=== PATIENT | male | born 1960 | race Caucasian/White ===

== ENCOUNTER 2016-07-15 23:59 | Inpatient (IN) | payer BC, OTHER ==
[~2016-07-15] VITALS: Ht 170.2 cm; Wt 106.6 kg
[2016-07-16] VITALS (8 sets, daily range): BP systolic 130–180; BP diastolic 71–98; O2SAT 95
[2016-07-16] MEDS ORDERED: ONDANSETRON 4MG/2ML VIAL (J2405) IV ONE (00:15)
[2016-07-16] MEDS ORDERED: NS 1,000 ML IV ONE ×2 (00:15→03:00)
[2016-07-16] MEDS ORDERED: MORPHINE 4 MG/ML 1ML SYRINGE IV PRN (00:15)
[2016-07-16 00:19] LABS: BASO # 0.1 K/mm3 (0.0-0.2); BASO % 0.3 % (0.0-1.0); EOS # 0.2 K/mm3 (0.0-0.50); LARGE UNSTAINED CELL # 0.3 K/mm3 (0.0-0.4); LARGE UNSTAINED CELL % 1.3 % (0.0-4.0); LYMPH # 2.6 K/mm3 (1.5-4.5); LYMPH % 12.4 % (24.0-44.0); MEAN CORPUSCULAR HEMOGLOBIN 30.7 pg (27.0-33.0); MEAN CORPUSCULAR HGB CONC 32.4 g/dl (32.0-36.5); MEAN CORPUSCULAR VOLUME 94.6 fl (80.0-96.0); MONO # 0.8 K/mm3 (0.0-0.8); MONO % 4.4 % (0.0-5.0); NEUTROPHILS # 15.4 K/mm3 (1.8-7.7); NEUTROPHILS % 80.6 % (36.0-66.0); PLATELET COUNT, AUTOMATED 350 k/mm3 (150-450); RED CELL DISTRIBUTION WIDTH 13.2 % (11.5-14.5); WHITE BLOOD COUNT 19.1 K/mm3 (4.0-10.0)
[2016-07-16] MEDS ORDERED: MULT1TAB18 PO (00:21)
[2016-07-16] MEDS ORDERED: ASPI81TA85 PO (00:21)
[2016-07-16] MEDS ORDERED: PEPC1TAB4 PO (00:21)
[2016-07-16] MEDS ORDERED: HYDROmorphone HCL 1 MG/ML SYRINGE (J1170) As Ordered ONE (00:23)
[2016-07-16] MEDS ORDERED: HYDROmorphone HCL 1 MG/ML SYRINGE (J1170) IV PRN ×4 (00:30→06:30)
[2016-07-16 00:45] LABS: ALBUMIN/GLOBULIN RATIO 1.21 (1.00-1.93); ALKALINE PHOSPHATASE 129 U/L (45-117); ALT/SGPT 82 U/L (12-78); ANION GAP 6 MEQ/L (8-16); AST/SGOT 121 U/L (15-37); BILIRUBIN,DIRECT 0.4 MG/DL (0.0-0.2); BILIRUBIN,TOTAL 0.7 MG/DL (0.2-1.0); BLOOD UREA NITROGEN 20 MG/DL (7-18); CALCIUM LEVEL 9.1 MG/DL (8.5-10.1); CARBON DIOXIDE LEVEL 34 MEQ/L (21-32); CHLORIDE LEVEL 100 MEQ/L (98-107); CREATININE FOR GFR 1.19 MG/DL (0.70-1.30); GLOMERULAR FILTRATION RATE > 60.0 (>56); GLUCOSE, FASTING 262 MG/DL (70-105); SODIUM LEVEL 140 MEQ/L (136-145); TOTAL PROTEIN 7.3 GM/DL (6.4-8.2)
[2016-07-16] MEDS ORDERED: ISOVUE-370 76% 100ML VIAL (Q9967) As Ordered ONE (01:51)
[2016-07-16] MEDS ORDERED: IMIPENEM/CILASTATIN 500 MG in D5W MINI-BAG PLUS 100 ML IV ONE (03:15)
--- NOTE | 2016-07-16 03:20 | REPUSA ---
CLINICAL HISTORY: Abdominal pain. TECHNIQUE: Multiple axial, sagittal and coronal CT images were obtained through the abdomen and pelvi s after administration of intravenous contrast material. COMMENTS: The liver is moderately enlarged with decreased attenuation without mass or defect. There is no intra or extrahepatic biliary ductal dilatation. The spleen is normal. The gallbladder is within normal li mits. There is no evidence of adrenal mass. Diffuse peripancreatic free fluid and fat stranding. Both kidneys demonstrate prompt and equal nephrograms. The kidneys are normal in size, shape and conf iguration. There is no evidence of renal or ureteral mass. No renal or ureteral calculi are identifie d. There is no hydroureter or hydronephrosis. No evidence for appendicitis. There is no bowel wall thickening. No evidence for small or large hazel l obstruction. There are mildly prominent peripancreatic lymph nodes the largest measuring 1.3 cm in There is no evidence of intrinsic or extrinsic bladder mass. Images of the lung bases show no evidence of pleural or parenchymal mass. There are no pleural effusi ons. Bilateral basilar atelectatic pulmonary changes. The bony structures are free of lytic or blastic lesions. Multilevel degenerative changes are seen in volving the thoracolumbar spine. Scattered calcifications are seen involving the aorta and major bran ches compatible with atherosclerosis. Uncomplicated diverticulosis. Small sliding-type hernia. Fluid-filled stomach suggestive of gastroparesis. IMPRESSION: Acute pancreatitis. Hepatomegaly with fatty liver infiltration. Nondilated biliary tree. No drainable fluid collection. Mildly prominent peripancreatic lymph nodes. Probably reactive. Thank you for your kind referral of this patient.
--- NOTE | 2016-07-16 03:20 | REPUSA ---
CLINICAL HISTORY: RUQ pain. TECHNIQUE: Realtime sonographic images were obtained in multiple projections. COMMENTS: The visualized liver is of uniform increased echogenicity without evidence of mass or defect. There i s no intra or extrahepatic biliary ductal dilatation. The common bile duct measures 4.8 mm. The gall bladder is distended containing sludge and a large stone at the neck of the gallbladder measuring 1.9 cm. The gallbladder wall is not thickened and there is no pericholecystic fluid. The visualized portions of the pancreas are unremarkable. The right kidney measures 12x6x5.7 cm. IMPRESSION: Distended gallbladder. Normal gallbladder with thickness measuring 2.4 mm. Impacted stone at the neck of the gallbladder. Sludge in the gallbladder. Fatty liver infiltration. Thank you for your kind referral of this patient.
[2016-07-16] MEDS ORDERED: SENOKOT S TAB PO PRN (03:30)
[2016-07-16] MEDS ORDERED: MORPHINE 2 MG/ML 1ML SYRINGE IV PRN (03:30)
[2016-07-16] MEDS ORDERED: VITMTA PO (03:32)
[2016-07-16] MEDS: ONDANSETRON 4MG/2ML VIAL (J2405) IV PRN ×2 (04:46→20:17)
[2016-07-16] MEDS: LR 1,000 ML IV SCH ×5 (04:46→23:55)
--- NOTE | 2016-07-16 05:48 | HPE ---
DATE OF ADMISSION: 07/16/2016 PRIMARY CARE PROVIDER: Dr. Simmons. The patient had not seen the primary care provider for a while. 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 HISTORY OF PRESENT ILLNESS: This is a 56-year-old male patient with underlying medical history of gastrointestinal reflux disease (GERD), diverticulosis. As per the patient he was in his usual state of health but around 8:45 p.m. on July 15, 2016 the patient developed an episode of acute abdominal pain, sharp, diffusely, mostly epigastric associated with nausea and vomiting times two, nonbloody, nonbilious. The pain was very sharp at its worse it was 8/10. It seems to be radiating to the back but not really sure. The patient earlier around 4 o'clock had dinner. Subsequently the patient presented to the emergency room with report of sweatiness, diaphoresis, denies any chest pain, pressure or discomfort. In the emergency room the patient was given morphine with relief of symptoms. Laboratory was then showing elevated lipase. The patient denies alcohol drinking recently. As per patient he usually drinks a beer every two weeks or so socially, very little. No smoking. Denies any sick contact. ALLERGIES: No known drug allergies reported. PAST MEDICAL HISTORY: 1. Diverticulosis. 2. GERD. PAST SURGICAL HISTORY: Knee surgery. FAMILY HISTORY: Noncontributory. Denies family history of cancers or coronary artery disease. SOCIAL HISTORY: The patient denies history of smoking, drinking beers every two weeks or so not on a steady basis. REVIEW OF SYSTEMS: 10-point review of system negative except for those mentioned in history of present illness (HPI). HOME MEDICATIONS: - aspirin 81 mg by mouth daily - Pepcid 20 mg by mouth twice a day - multivitamin one tablet by mouth daily PHYSICAL EXAMINATION: VITAL SIGNS: Temperature 96.9, pulse 85, respirations 16, blood pressure 156/74, pulse oximetry 95% on 2 liter nasal cannula. GENERAL: The patient was oriented times three, in no apparent distress, comfortable. HEENT: Normocephalic atraumatic. PULMONARY: Bilaterally clear to auscultation. CARDIAC: Regular rate and rhythm, normal S1, S2. ABDOMEN: Diffusely tender, no rebound or guarding. Hypoactive bowel sounds. EXTREMITIES: No edema bilateral lower extremities. LABORATORY: WBC 19.1, hemoglobin 14.9, hematocrit 45.8, platelets 550. Chemistries: Sodium 140, potassium 4, chloride 100, bicarbonate 34, BUN 20, creatinine 1.19, lactic acid 1.6, AST 121, ALT 82, alkaline phosphatase 129. Cardiac enzymes negative times 1. Lipase 1467. CT scan of the abdomen shows acute pancreatitis, hepatomegaly with fatty liver infiltrates, nondilated biliary tree, no adrenal fluid collection. Mildly prominent peripancreatic lymph nodes, probable active. Ultrasound of the gallbladder shows distended gallbladder, normal gallbladder with thickness measuring 2.4 mm., impacted stone at the neck of the gallbladder, sludge in the gallbladder, fatty liver infiltrates. ASSESSMENT AND PLAN: This is a 56-year-old male patient with underlying medical history of diverticulosis and gastrointestinal reflux disease (GERD) admitted for acute gallstone pancreatitis. PROBLEMS: 1. Acute gallstone pancreatitis. Ultrasound of the gallbladder appreciated. Dr. Jo from the emergency room has discussed the case with Dr. Gasca. Will give the patient intravenous (IV) fluids for hydration, premedications as ordered, nothing by mouth, followup lipase, followup liver function tests, if persistent elevated will consult Dr. Vitale for possible endoscopic retrograde cholangiopancreatography (ERCP), otherwise the patient might need a cholecystectomy, Dr. Gasca is aware. Zofran as needed . Protonix IV. Given one dose of imipenem. Cultures were sent. 2. Gastrointestinal reflux disease (GERD): Continue Protonix. 3. Diverticulosis. CT scan appreciated. Outpatient followup. 4. Deep venous thrombosis (DVT) prophylaxis. On Lovenox subcutaneous. DISPOSITION PLANNING: Pending clinical improvement, continue IV fluids. Will discuss the case with general surgery and gastroenterology.
[2016-07-16] MEDS ORDERED: HYDROmorphone HCL 1 MG/ML SYRINGE (J1170) IV ONE (07:45)
[2016-07-16] MEDS: ENOXAPARIN 40 MG/0.4 ML SYRINGE (J1650) SC SCH (08:04)
[2016-07-16] MEDS: PANTOPRAZOLE 40MG INJ (PROTONIX) (C9113) IV SCH (08:05)
[2016-07-16] MEDS ORDERED: PROMETHAZINE INJ 25 MG/ML VIAL (J2550) IV PRN (08:15)
[2016-07-16] MEDS: METOCLOPRAMIDE INJ 10MG/2ML VIAL (J2765) IV PRN (09:23)
[2016-07-16 09:48] LABS: EOS # 0.1 K/mm3 (0.0-0.50); EOS % 0.4 % (0.0-3.0); LARGE UNSTAINED CELL # 0.1 K/mm3 (0.0-0.4); LARGE UNSTAINED CELL % 0.6 % (0.0-4.0); LYMPH # 0.4 K/mm3 (1.5-4.5); LYMPH % 2.8 % (24.0-44.0); MEAN CORPUSCULAR HEMOGLOBIN 32.9 pg (27.0-33.0); MEAN CORPUSCULAR HGB CONC 34.6 g/dl (32.0-36.5); MEAN CORPUSCULAR VOLUME 95.1 fl (80.0-96.0); MONO # 0.6 K/mm3 (0.0-0.8); MONO % 3.9 % (0.0-5.0); NEUTROPHILS # 13.7 K/mm3 (1.8-7.7); NEUTROPHILS % 92.2 % (36.0-66.0); PLATELET COUNT, AUTOMATED 277 k/mm3 (150-450); WHITE BLOOD COUNT 14.8 K/mm3 (4.0-10.0)
[2016-07-16] MEDS: HYDROmorphone HCL 2 MG/ML 1ML VIAL (J1170) IV PRN (09:54)
[2016-07-16 10:23] LABS: ALBUMIN 3.7 GM/DL (3.2-5.2); ALBUMIN/GLOBULIN RATIO 1.03 (1.00-1.93); ALKALINE PHOSPHATASE 117 U/L (45-117); ALT/SGPT 101 U/L (12-78); ANION GAP 6 MEQ/L (8-16); AST/SGOT 95 U/L (15-37); BLOOD UREA NITROGEN 18 MG/DL (7-18); CALCIUM LEVEL 8.4 MG/DL (8.5-10.1); CARBON DIOXIDE LEVEL 31 MEQ/L (21-32); CHLORIDE LEVEL 105 MEQ/L (98-107); CREATININE FOR GFR 0.92 MG/DL (0.70-1.30); GLOMERULAR FILTRATION RATE > 60.0 (>56); GLUCOSE, FASTING 199 MG/DL (70-105); MAGNESIUM LEVEL 2.2 MG/DL (1.8-2.4); POTASSIUM SERUM 3.9 MEQ/L (3.5-5.1); SODIUM LEVEL 142 MEQ/L (136-145); TOTAL PROTEIN 7.3 GM/DL (6.4-8.2)
[2016-07-16] MEDS: KETOROLAC 30 MG/ML VIAL (J1885) IV PRN ×2 (11:42→18:17)
[2016-07-16] MEDS: IMIPENEM/CILASTATIN 500 MG in D5W MINI-BAG PLUS 100 ML IV SCH ×2 (13:49→18:17)
--- NOTE | 2016-07-16 15:48 | IPN ---
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 He was transferred to the progressive care unit (PCU) to allow for closer monitoring with higher dosage. Was sent to MRI, which was not completed, as he had a good amount of vomiting. Temperature 97.9, pulse 63, respirations 18, blood pressure 180/88, body mass index 36.3. He is sleepy but arousable. Pleasant, easily conversant. Seems somewhat somnolent but is a good historian. Mucous membranes tacky. Neck supple. Breathing is symmetrically diminished. Inspiratory to expiratory (I-to-E) ratio is 1:3. No wheezes, rales, or rhonchi. Heart is in a regular rate and rhythm. It is actually bradycardic. Abdomen is soft with left lower quadrant tenderness. Hypoactive bowel sounds. White cell count 14.8, hemoglobin 15.3, and platelets of 277. BUN 18, creatinine 0.92. Total bilirubin 1, AST 95, ALT 101, and alkaline phosphatase 117. Lipase is 11,408. ASSESSMENT: This is a 56-year-old with gallstone pancreatitis. PLAN: 1. For acute gallstone pancreatitis, discussed this case by phone both with Dr. Gasca and Dr. Vitale. Will re-attempt a magnetic resonance cholangiopancreatography (MRCP) this afternoon. Dr. Coffey is currently nothing by mouth on intravenous (IV) fluid. He has an nasogastric (NG) tube in place, which has greatly assisted with his nausea. Given his elevated white cell count, I have elected to continue imipenem due to concern about the possibility of ascending cholangitis, based on the severity of his symptoms, which are somewhat more than I would anticipate given his presentation. 2. Patient has gastroesophageal reflux disease (GERD). Continue with Protonix. 3. Patient has diverticulosis. 4. Patient has appropriate deep vein thrombosis (DVT) prophylaxis. 5. Respiratory. Do have some concern about his respiratory status based on the amount of opiates he has been using. We have pursued end-tidal CO2 monitoring.
--- NOTE | 2016-07-16 18:03 | REP ---
MRCP examination: History: Abdominal pain, nausea, pancreatitis. Comparison CT study July 16, 2016. Comparison sonography July 16, 2016. Technique: Axial T2 HASTE and coronal T2 TRUE FISP images are acquired. In addition, MRCP acquisition is performed and maximum intensity projection images from this acquisition are generated and viewed rotational. Source images are viewed. MRCP findings: There is a sliver of ascites in the perihepatic region. There is diffuse mesenteric and peripancreatic edema consistent with the patient's acute pancreatitis. No localized fluid collection is seen. There is no filling defect in the gallbladder. There is some pericholecystic fluid. Intrahepatic and extrahepatic bile duct radicles are normal in caliber and contour. No stricture or choledocholithiasis is seen. The main pancreatic duct is normal in caliber and orientation. No pancreatic cyst or mass is observed. Impression: Minimal ascites and diffuse peripancreatic and mesenteric edema consistent with acute pancreatitis. Otherwise negative MRCP exam. Signed by Vitaliy Gonsales MD 07/16/2016 06:30 P
--- NOTE | 2016-07-16 18:35 | CR ---
DATE OF CONSULTATION: 07/16/2016 This is a 56-year-old white male who was admitted to [facility] ([facility]) today for evaluation of acute onset of epigastric abdominal pain of unclear etiology. The patient apparently had a bout of epigastric band-like pain across the upper abdomen approximately 2-3 weeks ago. He has had no previous history of fevers, night sweats, shaking chills. No involuntary weight loss. No fevers, night sweats or shaking chills. DICTATION ENDS HERE
--- NOTE | 2016-07-16 21:45 | CR ---
DATE OF CONSULTATION: 07/16/2016 REASON FOR CONSULTATION: Cholelithiasis and pancreatitis. 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 He reports that he had never experienced pain this severe. This began after having a meal in the evening. It increased in intensity and became unbearable. He presented to the emergency department for evaluation where he underwent further evaluation. He had laboratory studies obtained that showed an elevation of his white count to 19,000 with 81% neutrophils. His chemistries showed mild elevations of his liver function tests but marked elevation of his lipase to 7190. CT scan of the abdomen and pelvis was obtained which revealed inflammatory changes of the pancreas consistent with pancreatitis. A gallbladder ultrasound was also obtained which revealed a distended gallbladder with a stone in the gallbladder neck. The gallbladder wall did not appear thickened. The patient was admitted by the hospitalist service for management of his pancreatitis. I was consulted regarding the cholelithiasis in association with the pancreatitis. On questioning the patient does recall having had a similar type of pain about a month ago. On that occasion the pain was of less intensity and lasted for a few hours and then resolved completely. ALLERGIES: The patient denies any known drug allergies. MEDICATIONS: Include: - aspirin 81 mg by mouth daily - famotidine 20 mg by mouth twice daily - multivitamin MEDICAL HISTORY: Significant for some gastroesophageal reflux disease. He also apparently has a history of diverticulosis. He has undergone a knee procedure in the early 1980s. REVIEW OF SYSTEMS: The patient denies any chronic severe headaches, seizure or stroke. He denies any history of deep venous thrombosis (DVT) or pulmonary embolus. There is no history of significant cardiac, respiratory, gastrointestinal (GI) or genitourinary () problems. SOCIAL HISTORY: The patient is a relatively recent . He does not smoke. He denies any excessive alcohol use. FAMILY HISTORY: Noncontributory. PHYSICAL EXAMINATION: Reveals a pleasant man dozing in the bed with a nasogastric (NG) tube in place. He rouses readily to voice. He is alert and oriented. Skin is warm and dry. Sclerae are anicteric. Mucous membranes are tacky to moist. The neck is supple without mass or bruit. Heart exam shows a regular rate and rhythm and he is not tachycardiac. The lungs are clear to auscultation bilaterally. The abdomen is somewhat protuberant. He has fairly significant tenderness to percussion across the upper abdomen, particularly in the epigastrium and left upper quadrant. The lower quadrants are softer and without significant tenderness. He does have a few bowel sounds present but overall the abdomen is somewhat quiet. Extremities are without edema and he has palpable radial and posterior tibial pulses. His laboratory studies from the morning of 07/16/2016, show sodium of 142, potassium 3.9, chloride 105, CO2 of 31, BUN of 18, creatinine 0.9, glucose of 199. He had a hemoglobin A1c of 6.1. Magnesium is 2.2. Total bilirubin is 1.0. AST is 95 with an ALT of 101 which are slightly different but not significantly elevated from what they were at midnight. His lipase was 11,408. CBC showed a white count of 14.8 which was down from 19,000 at the time of his admission. Hemoglobin is 15 with a hematocrit of 44 and platelet count is 277,000. Differential count shows 92% neutrophils, 3% lymphocytes. I reviewed his gallbladder ultrasound and his CT scan of the abdomen and pelvis. He has definite inflammatory changes associated with the pancreas. There is a small amount of free fluid extending over to the right as well. The ultrasound showed at least a stone in the gallbladder neck. The gallbladder wall was not thickened. IMPRESSION: 1. Acute pancreatitis, likely secondary to gallstones. 2. History of gastroesophageal reflux disease. 3. Diverticulosis. RECOMMENDATIONS: At this point it is important to determine whether he has a retained common bile duct stone. If he has a retained common duct stone, then he will need an ERCP to address this potential source for persistent pancreatic inflammation. I have spoken with Dr. Suarez who indicates that an MRCP is planned to try to assess the duct system. Dr. Vitale of gastroenterology has also been consulted and will be monitoring the situation. If there is no retained common duct stone then I would recommend medical management with supportive therapy for his pancreatitis and once his pancreatitis has resolved sufficiently we should proceed with a laparoscopic cholecystectomy. If he has a retained common duct stone then ERCP is warranted and again supportive management of his pancreatitis with a subsequent cholecystectomy. I advised the patient of my recommendations. He seemed appreciative. I will continue to follow him during his stay. MARILEE
[2016-07-16] MEDS ORDERED: MORPHINE 2 MG/ML 1ML SYRINGE IV ONE (22:30)
[2016-07-17] MEDS: KETOROLAC 30 MG/ML VIAL (J1885) IV PRN ×4 (00:25→18:36)
[2016-07-17] MEDS: IMIPENEM/CILASTATIN 500 MG in D5W MINI-BAG PLUS 100 ML IV SCH ×4 (00:25→18:37)
[2016-07-17 04:00] VITALS: BP 155/74
--- NOTE | 2016-07-17 04:51 | ECGEPIP ---
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
[2016-07-17 05:45] LABS: MEAN CORPUSCULAR HGB CONC 32.1 g/dl (32.0-36.5); MEAN CORPUSCULAR VOLUME 96.4 fl (80.0-96.0); RED CELL DISTRIBUTION WIDTH 13.4 % (11.5-14.5); WHITE BLOOD COUNT 20.2 K/mm3 (4.0-10.0)
[2016-07-17 05:58] LABS: ALBUMIN/GLOBULIN RATIO 0.97 (1.00-1.93); ALKALINE PHOSPHATASE 114 U/L (45-117); ALT/SGPT 131 U/L (12-78); ANION GAP 6 MEQ/L (8-16); AST/SGOT 68 U/L (15-37); BILIRUBIN,TOTAL 0.7 MG/DL (0.2-1.0); BLOOD UREA NITROGEN 16 MG/DL (7-18); CALCIUM LEVEL 7.5 MG/DL (8.5-10.1); CARBON DIOXIDE LEVEL 33 MEQ/L (21-32); CHLORIDE LEVEL 102 MEQ/L (98-107); CREATININE FOR GFR 0.88 MG/DL (0.70-1.30); GLOMERULAR FILTRATION RATE > 60.0 (>56); GLUCOSE, FASTING 133 MG/DL (70-105); POTASSIUM SERUM 3.8 MEQ/L (3.5-5.1); SODIUM LEVEL 141 MEQ/L (136-145); TOTAL PROTEIN 6.1 GM/DL (6.4-8.2)
[2016-07-17] MEDS: LR 1,000 ML IV SCH ×3 (06:27→22:17)
[2016-07-17 08:00] VITALS: BP 160/86
[2016-07-17] MEDS: PANTOPRAZOLE 40MG INJ (PROTONIX) (C9113) IV SCH (08:53)
[2016-07-17] MEDS: ENOXAPARIN 40 MG/0.4 ML SYRINGE (J1650) SC SCH (08:59)
[2016-07-17] MEDS ORDERED: SODIUM CHLORIDE NASAL 0.65% SPRAY BTL (OCEAN) PRN (10:00)
[2016-07-17 12:00] VITALS: BP 137/67; O2SAT 96
[2016-07-17 16:00] VITALS: BP 147/78; O2SAT 96
--- NOTE | 2016-07-17 18:44 | IPNPDOC ---
Date Seen The patient was seen on 07/17/16. Progress Note Hospitalist Progress Note Subjective: Patient states that he continues to have abdominal pain, but it might be marginally improved from yesterday. Additionally, he is experiencing less nausea. Objective: Physical Exam: Vitals: Vital Sign - Last 24 Hours 07/16/16 07/16/16 07/16/16 07/16/16 20:00 20:00 22:33 22:43 Temp 99.8 Pulse 68 Resp 20 18 18 B/P 130/71 Pulse Ox 96 O2 Delivery Nasal Cannula Nasal Cannula O2 Flow Rate 2.0 2.0 07/16/16 07/17/16 07/17/16 07/17/16 23:59 04:00 08:00 08:00 Temp 99.3 99.4 99.7 Pulse 67 81 63 Resp 18 20 18 B/P 166/98 155/74 160/86 Pulse Ox 95 94 96 O2 Delivery Nasal Cannula Nasal Cannula Nasal Cannula Nasal Cannula O2 Flow Rate 2.0 2.0 2.0 2.0 07/17/16 07/17/16 07/17/16 07/17/16 12:00 12:00 12:30 16:00 Temp 99.4 Pulse 77 Resp 18 B/P 137/67 Pulse Ox 96 O2 Delivery Nasal Cannula Nasal Cannula Nasal Cannula Nasal Cannula O2 Flow Rate 2.0 2.0 2.0 07/17/16 07/17/16 07/17/16 16:00 16:00 17:06 Temp 101.2 99.7 Pulse 72 70 Resp 18 21 B/P 147/78 Pulse Ox 96 96 96 O2 Delivery Nasal Cannula Nasal Cannula Nasal Cannula O2 Flow Rate 2.0 2.0 General: aWake, alert, no acute distress HEENT: Normocephalic, atraumatic, extraocular movements intact, NG in place CV: Regular rate and rhythm, no murmurs rubs or gallops Lungs: Clear to auscultation bilaterally Abd: Soft, decreased but present bowel sounds, tenderness to even mild palpation in all quadrants Extremities: No edema, pedal pulses intact Neuro: Alert and oriented 3, normal speech Psych: Normal Mood and affect Labs and Imaging: Laboratory Tests 07/17/16 05:19 Calcium Level 7.5 L, Aspartate Amino Transf (AST/SGOT) 68 H, Alanine Aminotransferase (ALT/SGPT) 131 H, Alkaline Phosphatase 114, Total Bilirubin 0.7 , Total Protein 6.1 L, Albumin 3.0 L, Red Blood Count 4.50, Mean Corpuscular Volume 96.4 H, Mean Corpuscular Hemoglobin 31.0, Mean Corpuscular Hemoglobin Concent 32.1, Red Cell Distribution Width 13.4 Assessment and Plan: 56-year-old male with diverticulosis and GERD who presented with severe abdominal pain and vomiting, and has been admitted with acute gallstone pancreatitis. 1. Acute gallstone pancreatitis: MRCP yesterday showed edema consistent with pancreatitis, but did not show any evidence of a dilated common bile duct. Dr. Vitale and Dr. Gasca and we appreciate their input. At this time, there does not appear to be any need for an ERCP. We will keep the patient nothing by mouth, with the NG tube and IV fluids. Additionally, the patient has found to have the best pain relief with Toradol, which we will continue. LFTs are overall trending down today. 2. Leukocytosis: The patient's initial white count was 19.1. He had shown some slight improvement 14.8 yesterday, but it is now on increased again to 20.2. The patient was afebrile upon presentation, and has been afebrile through this morning. However, given this persistent elevation and leukocytosis, I'm going to continue the patient's imipenem for concern of possible ascending cholangitis. Other possibilities would be that this is simply a reactive process inflamed pancreas. We'll continue to monitor the patient closely. Blood cultures are pending. 3. GERD: Continue PPI DVT prophylaxis: And Lovenox Dispo: pending clinical improvement VS, I&O, 24H, [facility] Vital Signs/I&O Vital Signs Date Time Temp Pulse Resp B/P Pulse Ox O2 Delivery O2 Flow Rate FiO2 07/17/16 17:06 99.7 70 21 96 Nasal Cannula 2.0 07/17/16 16:00 147/78 I&O- Last 24 Hours up to 6 AM 07/17/16 06:00 Intake Total 1360 ml Output Total 985 ml Balance 375 ml Laboratory Data 24H LABS Laboratory Tests 2 07/17/16 05:19: Blood Urea Nitrogen 16, Creatinine 0.88, Sodium Level 141, Potassium Level 3.8, Chloride Level 102, Carbon Dioxide Level 33H, Calcium Level 7.5L, Aspartate Amino Transf (AST/SGOT) 68H, Alanine Aminotransferase (ALT/SGPT) 131H, Alkaline Phosphatase 114, Total Bilirubin 0.7, Total Protein 6.1L, Albumin 3.0L, Albumin/ Globulin Ratio 0.97L, Anion Gap 6L, Glomerular Filtration Rate > 60.0, Lipase 2732H, Magnesium Level 2.0 CBC/BMP Laboratory Tests 07/17/16 05:19 Calcium Level 7.5 L, Aspartate Amino Transf (AST/SGOT) 68 H, Alanine Aminotransferase (ALT/SGPT) 131 H, Alkaline Phosphatase 114, Total Bilirubin 0.7 , Total Protein 6.1 L, Albumin 3.0 L, Red Blood Count 4.50, Mean Corpuscular Volume 96.4 H, Mean Corpuscular Hemoglobin 31.0, Mean Corpuscular Hemoglobin Concent 32.1, Red Cell Distribution Width 13.4 Microbiology Microbiology 07/16/16 Blood Culture - Preliminary, Resulted No growth after 24 hours . All specim... 07/16/16 Blood Culture - Preliminary, Resulted No growth after 24 hours . All specim... KASI TORRES Jul 17, 2016 18:44
[2016-07-17 20:00] VITALS: BP 128/79
[2016-07-17 23:59] VITALS: BP 140/68
[2016-07-18] VITALS (15 sets, daily range): BP systolic 152–169; BP diastolic 74–91; O2SAT 9–96
[2016-07-18] MEDS: IMIPENEM/CILASTATIN 500 MG in D5W MINI-BAG PLUS 100 ML IV SCH ×4 (00:53→19:14)
[2016-07-18] MEDS: KETOROLAC 30 MG/ML VIAL (J1885) IV PRN (00:53)
[2016-07-18 05:58] LABS: MEAN CORPUSCULAR HEMOGLOBIN 31.3 pg (27.0-33.0); MEAN CORPUSCULAR HGB CONC 32.7 g/dl (32.0-36.5); MEAN CORPUSCULAR VOLUME 95.6 fl (80.0-96.0); RED CELL DISTRIBUTION WIDTH 13.4 % (11.5-14.5); WHITE BLOOD COUNT 20.3 K/mm3 (4.0-10.0)
[2016-07-18 06:13] LABS: ALBUMIN 2.8 GM/DL (3.2-5.2); ALKALINE PHOSPHATASE 102 U/L (45-117); ALT/SGPT 76 U/L (12-78); ANION GAP 7 MEQ/L (8-16); AST/SGOT 33 U/L (15-37); BILIRUBIN,TOTAL 0.9 MG/DL (0.2-1.0); BLOOD UREA NITROGEN 13 MG/DL (7-18); CALCIUM LEVEL 7.4 MG/DL (8.5-10.1); CARBON DIOXIDE LEVEL 30 MEQ/L (21-32); CHLORIDE LEVEL 101 MEQ/L (98-107); CREATININE FOR GFR 0.75 MG/DL (0.70-1.30); GLOMERULAR FILTRATION RATE > 60.0 (>56); GLUCOSE, FASTING 124 MG/DL (70-105); MAGNESIUM LEVEL 1.8 MG/DL (1.8-2.4); POTASSIUM SERUM 3.5 MEQ/L (3.5-5.1); SODIUM LEVEL 138 MEQ/L (136-145); TOTAL PROTEIN 6.3 GM/DL (6.4-8.2)
[2016-07-18] MEDS: LR 1,000 ML IV SCH ×2 (06:33→17:53)
[2016-07-18] MEDS: ACETAMINOPHEN TAB 650MG DOSE (2X325MG) PO PRN (07:52)
[2016-07-18] MEDS: ENOXAPARIN 40 MG/0.4 ML SYRINGE (J1650) SC SCH ×2 (09:04→09:14)
[2016-07-18] MEDS: PANTOPRAZOLE 40MG INJ (PROTONIX) (C9113) IV SCH (09:04)
--- NOTE | 2016-07-18 10:43 | IPNPDOC ---
Date Seen The patient was seen on 07/18/16. Progress Note Hospitalist Progress Note Subjective: Patient states that he continues to have abdominal pain, and is more uncomfortable than yesterday. Still no BM. Objective: Physical Exam: Vitals: Vital Sign - Last 24 Hours 07/17/16 07/17/16 07/17/16 07/17/16 12:00 12:00 12:30 16:00 Temp 99.4 Pulse 77 Resp 18 B/P 137/67 Pulse Ox 96 O2 Delivery Nasal Cannula Nasal Cannula Nasal Cannula Nasal Cannula O2 Flow Rate 2.0 2.0 2.0 07/17/16 07/17/16 07/17/16 07/17/16 16:00 16:00 17:06 20:00 Temp 101.2 99.7 100.5 Pulse 72 70 95 Resp 18 21 20 B/P 147/78 128/79 Pulse Ox 96 96 96 92 O2 Delivery Nasal Cannula Nasal Cannula Nasal Cannula Nasal Cannula O2 Flow Rate 2.0 2.0 2.0 07/17/16 07/17/16 07/18/16 07/18/16 20:00 23:59 00:00 04:00 Temp 100.9 100.9 Pulse 77 82 Resp 20 20 B/P 140/68 158/91 Pulse Ox 96 94 91 O2 Delivery Nasal Cannula Nasal Cannula Nasal Cannula Nasal Cannula O2 Flow Rate 2.0 2.0 2.0 2.0 07/18/16 07/18/16 07/18/16 07/18/16 04:00 07:00 08:00 08:00 Temp 96.8 Pulse 80 Resp 18 B/P 160/87 Pulse Ox 93 91 9 95 O2 Delivery Nasal Cannula Nasal Cannula Nasal Cannula Nasal Cannula O2 Flow Rate 2.0 2.0 2.0 2.0 07/18/16 07/18/16 08:00 09:00 Pulse Ox 96 O2 Delivery Nasal Cannula Nasal Cannula O2 Flow Rate 2.0 2.0 General: aWake, alert, no acute distress HEENT: Normocephalic, atraumatic, extraocular movements intact, NG in place CV: Regular rate and rhythm Lungs: Clear to auscultation bilaterally, no wheeze Abd: Soft, faint but present bowel sounds, tenderness to even mild palpation in all quadrants Extremities: No edema, pedal pulses intact Neuro: Alert and oriented 3, normal speech Psych: Normal Mood and affect Labs and Imaging: Laboratory Tests 07/18/16 05:39 Calcium Level 7.4 L, Aspartate Amino Transf (AST/SGOT) 33, Alanine Aminotransferase (ALT/SGPT) 76, Alkaline Phosphatase 102, Total Bilirubin 0.9, Total Protein 6.3 L, Albumin 2.8 L, Red Blood Count 4.21 L, Mean Corpuscular Volume 95.6, Mean Corpuscular Hemoglobin 31.3, Mean Corpuscular Hemoglobin Concent 32.7, Red Cell Distribution Width 13.4 Assessment and Plan: 56-year-old male with diverticulosis and GERD who presented with severe abdominal pain and vomiting, and has been admitted with acute gallstone pancreatitis. 1. Acute gallstone pancreatitis: MRCP showed edema consistent with pancreatitis , but did not show any evidence of a dilated common bile duct. Dr. Vitale and Dr. Gasca are following and we appreciate their input. At this time, there does not appear to be any need for an ERCP. We will keep the patient nothing by mouth, with the NG tube and IV fluids. LFTs today have normalized. 2. Leukocytosis: The patient's initial white count was 19.1. He had shown some slight improvement 14.8 but it has been back around 20 for 2 days now. The patient was afebrile upon presentation, however, yesterday afternoon he began having fevers with a Tmax of 101.2. Continue the patient's imipenem. We'll continue to monitor the patient closely. Blood cultures are negative. 3. Ileus: Faint bowel sounds are heard, but no BM yet. NG in place, keep NPO. 4. GERD: Continue PPI DVT prophylaxis: Lovenox Dispo: pending clinical improvement VS, I&O, [facility]H, [facility] Vital Signs/I&O Vital Signs Date Time Temp Pulse Resp B/P Pulse Ox O2 Delivery O2 Flow Rate FiO2 07/18/16 09:00 96 Nasal Cannula 2.0 07/18/16 08:00 96.8 80 18 160/87 I&O- Last 24 Hours up to 6 AM 07/18/16 06:00 Intake Total 2250 ml Output Total 1400 ml Balance 850 ml Laboratory Data 24H LABS Laboratory Tests 2 07/18/16 05:39: Blood Urea Nitrogen 13, Creatinine 0.75, Sodium Level 138, Potassium Level 3.5, Chloride Level 101, Carbon Dioxide Level 30, Calcium Level 7.4L, Aspartate Amino Transf (AST/SGOT) 33, Alanine Aminotransferase (ALT/SGPT) 76, Alkaline Phosphatase 102, Total Bilirubin 0.9, Total Protein 6.3L, Albumin 2.8L, Albumin/ Globulin Ratio 0.80L, Anion Gap 7L, Glomerular Filtration Rate > 60.0, Lipase 1306H, Magnesium Level 1.8 CBC/BMP Laboratory Tests 07/18/16 05:39 Calcium Level 7.4 L, Aspartate Amino Transf (AST/SGOT) 33, Alanine Aminotransferase (ALT/SGPT) 76, Alkaline Phosphatase 102, Total Bilirubin 0.9, Total Protein 6.3 L, Albumin 2.8 L, Red Blood Count 4.21 L, Mean Corpuscular Volume 95.6, Mean Corpuscular Hemoglobin 31.3, Mean Corpuscular Hemoglobin Concent 32.7, Red Cell Distribution Width 13.4 Microbiology Microbiology 07/16/16 Blood Culture - Preliminary, Resulted No Growth after 48 hours. All Specime... 07/16/16 Blood Culture - Preliminary, Resulted No Growth after 48 hours. All Specime... KASI TORRES Jul 18, 2016 10:43
[2016-07-18] MEDS: HYDROmorphone HCL 2 MG/ML 1ML VIAL (J1170) IV PRN ×4 (10:52→23:50)
[2016-07-19] MEDS: IMIPENEM/CILASTATIN 500 MG in D5W MINI-BAG PLUS 100 ML IV SCH ×4 (01:09→18:34)
[2016-07-19 02:55] VITALS: BP 145/78
[2016-07-19] MEDS: HYDROmorphone HCL 1 MG/ML SYRINGE (J1170) IV PRN ×2 (03:11→09:38)
[2016-07-19] MEDS: LR 1,000 ML IV SCH (05:43)
[2016-07-19 05:57] LABS: MEAN CORPUSCULAR HEMOGLOBIN 31.4 pg (27.0-33.0); MEAN CORPUSCULAR HGB CONC 32.8 g/dl (32.0-36.5); MEAN CORPUSCULAR VOLUME 95.6 fl (80.0-96.0); RED CELL DISTRIBUTION WIDTH 13.2 % (11.5-14.5); WHITE BLOOD COUNT 17.8 K/mm3 (4.0-10.0)
[2016-07-19 06:24] LABS: ALBUMIN 2.5 GM/DL (3.2-5.2); ALBUMIN/GLOBULIN RATIO 0.64 (1.00-1.93); ALKALINE PHOSPHATASE 106 U/L (45-117); ALT/SGPT 50 U/L (12-78); ANION GAP 6 MEQ/L (8-16); AST/SGOT 27 U/L (15-37); BILIRUBIN,TOTAL 1.1 MG/DL (0.2-1.0); BLOOD UREA NITROGEN 13 MG/DL (7-18); CALCIUM LEVEL 7.6 MG/DL (8.5-10.1); CARBON DIOXIDE LEVEL 31 MEQ/L (21-32); CHLORIDE LEVEL 98 MEQ/L (98-107); GLOMERULAR FILTRATION RATE > 60.0 (>56); GLUCOSE, FASTING 117 MG/DL (70-105); POTASSIUM SERUM 3.4 MEQ/L (3.5-5.1); SODIUM LEVEL 135 MEQ/L (136-145); TOTAL PROTEIN 6.4 GM/DL (6.4-8.2)
[2016-07-19 08:00] VITALS: BP 166/82
[2016-07-19] MEDS: PANTOPRAZOLE 40MG INJ (PROTONIX) (C9113) IV SCH (09:31)
[2016-07-19] MEDS: KCL 20MEQ in NS 1000ML 1,000 ML IV SCH ×2 (09:36→20:59)
[2016-07-19 12:00] VITALS: BP 162/91
[2016-07-19] MEDS: KETOROLAC 30 MG/ML VIAL (J1885) IV PRN ×2 (12:34→18:31)
[2016-07-19 16:00] VITALS: BP 150/67
--- NOTE | 2016-07-19 16:40 | IPNPDOC ---
Date Seen The patient was seen on 07/19/16. Progress Note Hospitalist Progress Note Subjective: Patient states that his pain is not much improved; he denies any flatus or BM Objective: Physical Exam: Vitals: Vital Sign - Last 24 Hours 07/18/16 07/18/16 07/18/16 07/18/16 16:50 17:00 19:40 20:08 Temp 100.6 Pulse 74 Resp 18 26 B/P 165/91 Pulse Ox 94 96 95 O2 Delivery Nasal Cannula Nasal Cannula Nasal Cannula O2 Flow Rate 2.0 2.0 2.0 2.0 07/18/16 07/18/16 07/18/16 07/19/16 21:00 22:44 23:50 00:04 Temp 99.8 Pulse 84 Resp 20 21 83 B/P 152/79 Pulse Ox 90 96 95 O2 Delivery Nasal Cannula Room Air Nasal Cannula O2 Flow Rate 2.0 2.0 2.0 07/19/16 07/19/16 07/19/16 07/19/16 02:55 03:11 04:00 08:00 Temp 98.0 98.2 Pulse 76 84 Resp 18 20 18 B/P 145/78 166/82 Pulse Ox 94 95 94 O2 Delivery Nasal Cannula Nasal Cannula Room Air O2 Flow Rate 2.0 2.0 2.0 07/19/16 07/19/16 07/19/16 07/19/16 08:00 09:38 10:00 12:00 Temp 97.5 Pulse 76 77 69 Resp 20 20 18 18 B/P 162/91 Pulse Ox 94 97 94 O2 Delivery Room Air Room Air Nasal Cannula Room Air O2 Flow Rate 2.0 07/19/16 07/19/16 12:00 13:45 O2 Delivery Nasal Cannula Room Air O2 Flow Rate 2.0 General: aWake, alert, no acute distress HEENT: Normocephalic, atraumatic, extraocular movements intact, NG in place CV: Regular rate and rhythm Lungs: Clear to auscultation bilaterally, no wheeze Abd: Soft, no appreciable bowel sounds, tenderness to even mild palpation in all quadrants Extremities: No edema, pedal pulses intact Neuro: Alert and oriented 3, normal speech Psych: Normal Mood and affect Labs and Imaging: Laboratory Tests 07/19/16 05:37 Calcium Level 7.6 L, Aspartate Amino Transf (AST/SGOT) 27, Alanine Aminotransferase (ALT/SGPT) 50, Alkaline Phosphatase 106, Total Bilirubin 1.1 H , Total Protein 6.4, Albumin 2.5 L, Red Blood Count 4.10 L, Mean Corpuscular Volume 95.6, Mean Corpuscular Hemoglobin 31.4, Mean Corpuscular Hemoglobin Concent 32.8, Red Cell Distribution Width 13.2 Assessment and Plan: 56-year-old male with diverticulosis and GERD who presented with severe abdominal pain and vomiting, and has been admitted with acute gallstone pancreatitis. 1. Acute gallstone pancreatitis: MRCP showed edema consistent with pancreatitis , but did not show any evidence of a dilated common bile duct. Dr. Vitale and Dr. Gasca are following and we appreciate their input. At this time, there does not appear to be any need for an ERCP. We will keep the patient nothing by mouth, with the NG tube and IV fluids. LFTs have normalized. 2. Leukocytosis: The patient's initial white count was 19.1. He initially had some slight improvement 14.8 but then it jumped to 20 for 2 days. Now improved today to 17. The patient's Tmax was 100.6. Continue the patient's imipenem. We 'll continue to monitor the patient closely. Blood cultures are negative. 3. Ileus:No BM or flatus yet. NG in place, keep NPO. 4. GERD: Continue PPI 5. Hypokalemia: replace in IVF DVT prophylaxis: Lovenox Dispo: pending clinical improvement VS, I&O, 24H, [facility] Vital Signs/I&O Vital Signs Date Time Temp Pulse Resp B/P Pulse Ox O2 Delivery O2 Flow Rate FiO2 07/19/16 13:45 Room Air 07/19/16 12:00 2.0 07/19/16 12:00 97.5 69 18 162/91 94 I&O- Last 24 Hours up to 6 AM 07/19/16 06:00 Intake Total 2730 ml Output Total 2585 ml Balance 145 ml Laboratory Data 24H LABS Laboratory Tests 2 07/19/16 05:37: Blood Urea Nitrogen 13, Creatinine 0.70, Sodium Level 135L, Potassium Level 3.4L , Chloride Level 98, Carbon Dioxide Level 31, Calcium Level 7.6L, Aspartate Amino Transf (AST/SGOT) 27, Alanine Aminotransferase (ALT/SGPT) 50, Alkaline Phosphatase 106, Total Bilirubin 1.1H, Total Protein 6.4, Albumin 2.5L, Albumin/ Globulin Ratio 0.64L, Anion Gap 6L, Glomerular Filtration Rate > 60.0, Lipase 452H, Magnesium Level 2.0 CBC/BMP Laboratory Tests 07/19/16 05:37 Calcium Level 7.6 L, Aspartate Amino Transf (AST/SGOT) 27, Alanine Aminotransferase (ALT/SGPT) 50, Alkaline Phosphatase 106, Total Bilirubin 1.1 H , Total Protein 6.4, Albumin 2.5 L, Red Blood Count 4.10 L, Mean Corpuscular Volume 95.6, Mean Corpuscular Hemoglobin 31.4, Mean Corpuscular Hemoglobin Concent 32.8, Red Cell Distribution Width 13.2 Microbiology Microbiology 07/16/16 Blood Culture - Preliminary, Resulted No Growth after 72 hours. All specime... 07/16/16 Blood Culture - Preliminary, Resulted No Growth after 72 hours. All specime... KASI TORRES Jul 19, 2016 16:40
[2016-07-19 20:06] VITALS: BP 145/73
[2016-07-19] MEDS ORDERED: ANALGESIC BALM CRM 120 GM TOP PRN (21:15)
[2016-07-20] MEDS: KETOROLAC 30 MG/ML VIAL (J1885) IV PRN ×4 (00:40→21:57)
[2016-07-20] MEDS: IMIPENEM/CILASTATIN 500 MG in D5W MINI-BAG PLUS 100 ML IV SCH ×4 (00:40→18:35)
[2016-07-20 04:00] VITALS: BP 148/71
[2016-07-20] MEDS: ACETAMINOPHEN TAB 650MG DOSE (2X325MG) PO PRN ×2 (04:54→21:00)
[2016-07-20 06:08] LABS: MEAN CORPUSCULAR HEMOGLOBIN 31.6 pg (27.0-33.0); MEAN CORPUSCULAR HGB CONC 33.4 g/dl (32.0-36.5); MEAN CORPUSCULAR VOLUME 94.7 fl (80.0-96.0); RED CELL DISTRIBUTION WIDTH 13.3 % (11.5-14.5); WHITE BLOOD COUNT 15.8 K/mm3 (4.0-10.0)
[2016-07-20 06:27] LABS: ALBUMIN 2.3 GM/DL (3.2-5.2); ALBUMIN/GLOBULIN RATIO 0.61 (1.00-1.93); ALKALINE PHOSPHATASE 123 U/L (45-117); ALT/SGPT 38 U/L (12-78); ANION GAP 6 MEQ/L (8-16); AST/SGOT 30 U/L (15-37); BLOOD UREA NITROGEN 14 MG/DL (7-18); CALCIUM LEVEL 7.6 MG/DL (8.5-10.1); CARBON DIOXIDE LEVEL 28 MEQ/L (21-32); CHLORIDE LEVEL 100 MEQ/L (98-107); CREATININE FOR GFR 0.62 MG/DL (0.70-1.30); GLOMERULAR FILTRATION RATE > 60.0 (>56); GLUCOSE, FASTING 106 MG/DL (70-105); MAGNESIUM LEVEL 2.3 MG/DL (1.8-2.4); POTASSIUM SERUM 3.6 MEQ/L (3.5-5.1); SODIUM LEVEL 134 MEQ/L (136-145); TOTAL PROTEIN 6.1 GM/DL (6.4-8.2)
[2016-07-20] MEDS: KCL 20MEQ in NS 1000ML 1,000 ML IV SCH ×2 (06:37→18:37)
[2016-07-20 07:45] VITALS: BP 168/86
[2016-07-20] MEDS: PANTOPRAZOLE 40MG INJ (PROTONIX) (C9113) IV SCH (08:43)
[2016-07-20] MEDS: ENOXAPARIN 40 MG/0.4 ML SYRINGE (J1650) SC SCH (08:54)
[2016-07-20 12:00] VITALS: BP 173/84
[2016-07-20] MEDS: HYDROmorphone HCL 1 MG/ML SYRINGE (J1170) IV PRN (12:57)
--- NOTE | 2016-07-20 14:18 | IPNPDOC ---
Date Seen The patient was seen on 07/20/16. Progress Note Hospitalist Progress Note Subjective: Patient states he is passing flatus Objective: Physical Exam: Vitals: Vital Sign - Last 24 Hours 07/19/16 07/19/16 07/19/16 07/19/16 16:00 16:00 20:00 20:06 Temp 99.5 99.2 Pulse 101 86 Resp 17 20 B/P 150/67 145/73 Pulse Ox 95 93 O2 Delivery Room Air Room Air Nasal Cannula Room Air O2 Flow Rate 2.0 07/20/16 07/20/16 07/20/16 07/20/16 04:00 07:45 07:50 12:00 Temp 99.6 97.4 98.4 Pulse 67 73 63 Resp 18 20 20 B/P 148/71 168/86 173/84 Pulse Ox 93 95 95 O2 Delivery Room Air Room Air Room Air Room Air 07/20/16 07/20/16 07/20/16 12:06 12:57 13:15 Pulse 63 66 Resp 17 18 O2 Delivery Room Air Room Air Room Air General: aWake, alert, no acute distress HEENT: Normocephalic, atraumatic, extraocular movements intact CV: Regular rate and rhythm Lungs: Clear to auscultation bilaterally, no wheeze Abd: Soft, no appreciable bowel sounds, tenderness improving and mostly localized to epigastrum Extremities: No edema, pedal pulses intact Neuro: Alert and oriented 3, normal speech Psych: Normal Mood and affect Labs and Imaging: Laboratory Tests 07/20/16 05:36 Calcium Level 7.6 L, Aspartate Amino Transf (AST/SGOT) 30, Alanine Aminotransferase (ALT/SGPT) 38, Alkaline Phosphatase 123 H, Total Bilirubin 1.0 , Total Protein 6.1 L, Albumin 2.3 L, Red Blood Count 3.76 L, Mean Corpuscular Volume 94.7, Mean Corpuscular Hemoglobin 31.6, Mean Corpuscular Hemoglobin Concent 33.4, Red Cell Distribution Width 13.3 Assessment and Plan: 56-year-old male with diverticulosis and GERD who presented with severe abdominal pain and vomiting, and has been admitted with acute gallstone pancreatitis. 1. Acute gallstone pancreatitis: MRCP showed edema consistent with pancreatitis , but did not show any evidence of a dilated common bile duct. Dr. Vitale and Dr. Gasca are following and we appreciate their input. At this time, there does not appear to be any need for an ERCP. LFTs have normalized. Now that the ileus seems to be resolving, we will start the patient on liquids; NG has already been removed. 2. Leukocytosis: The patient's initial white count was 19.1. He initially had some slight improvement 14.8 but then it jumped to 20 for 2 days. Now showing steady improvement and down to 15. The patient was afebrile overnight. Continue the patient's imipenem. We'll continue to monitor the patient closely. Blood cultures are negative. 3. Ileus: Passing flatus; NG has been removed and we will start clears. 4. GERD: Continue PPI 5. Hypokalemia: replacing in IVF DVT prophylaxis: Lovenox Dispo: pending clinical improvement, potentially home in the next 24-48H VS, I&O, 24H, [facility] Vital Signs/I&O Vital Signs Date Time Temp Pulse Resp B/P Pulse Ox O2 Delivery O2 Flow Rate FiO2 07/20/16 13:15 66 18 Room Air 07/20/16 12:00 98.4 173/84 95 07/19/16 20:00 2.0 I&O- Last 24 Hours up to 6 AM 07/20/16 06:00 Intake Total 2610 ml Output Total 1350 ml Balance 1260 ml Laboratory Data 24H LABS Laboratory Tests 2 07/20/16 05:36: Blood Urea Nitrogen 14, Creatinine 0.62L, Sodium Level 134L, Potassium Level 3.6 , Chloride Level 100, Carbon Dioxide Level 28, Calcium Level 7.6L, Aspartate Amino Transf (AST/SGOT) 30, Alanine Aminotransferase (ALT/SGPT) 38, Alkaline Phosphatase 123H, Total Bilirubin 1.0, Total Protein 6.1L, Albumin 2.3L, Albumin /Globulin Ratio 0.61L, Anion Gap 6L, Glomerular Filtration Rate > 60.0, Lipase 108, Magnesium Level 2.3 CBC/BMP Laboratory Tests 07/20/16 05:36 Calcium Level 7.6 L, Aspartate Amino Transf (AST/SGOT) 30, Alanine Aminotransferase (ALT/SGPT) 38, Alkaline Phosphatase 123 H, Total Bilirubin 1.0 , Total Protein 6.1 L, Albumin 2.3 L, Red Blood Count 3.76 L, Mean Corpuscular Volume 94.7, Mean Corpuscular Hemoglobin 31.6, Mean Corpuscular Hemoglobin Concent 33.4, Red Cell Distribution Width 13.3 Microbiology Microbiology 07/16/16 Blood Culture - Preliminary, Resulted No Growth after 72 hours. All specime... 07/16/16 Blood Culture - Preliminary, Resulted No Growth after 72 hours. All specime... KASI TORRES Jul 20, 2016 14:18
[2016-07-20 16:00] VITALS: BP 173/81
[2016-07-20] MEDS: METOCLOPRAMIDE INJ 10MG/2ML VIAL (J2765) IV PRN (18:32)
[2016-07-20 20:00] VITALS: BP 171/81
[2016-07-21] VITALS: BP 150/73
[2016-07-21] MEDS: ACETAMINOPHEN TAB 650MG DOSE (2X325MG) PO PRN (01:01)
[2016-07-21] MEDS: HYDROmorphone HCL 1 MG/ML SYRINGE (J1170) IV PRN ×2 (01:21→04:21)
[2016-07-21 04:00] VITALS: BP 166/76
[2016-07-21 05:34] LABS: MEAN CORPUSCULAR HEMOGLOBIN 31.9 pg (27.0-33.0); MEAN CORPUSCULAR HGB CONC 33.3 g/dl (32.0-36.5); MEAN CORPUSCULAR VOLUME 95.6 fl (80.0-96.0); RED CELL DISTRIBUTION WIDTH 13.2 % (11.5-14.5); WHITE BLOOD COUNT 14.6 K/mm3 (4.0-10.0)
[2016-07-21 05:47] LABS: ALBUMIN 2.1 GM/DL (3.2-5.2); ALBUMIN/GLOBULIN RATIO 0.62 (1.00-1.93); ALKALINE PHOSPHATASE 131 U/L (45-117); ALT/SGPT 40 U/L (12-78); ANION GAP 6 MEQ/L (8-16); AST/SGOT 33 U/L (15-37); BILIRUBIN,TOTAL 0.9 MG/DL (0.2-1.0); BLOOD UREA NITROGEN 10 MG/DL (7-18); CALCIUM LEVEL 7.4 MG/DL (8.5-10.1); CARBON DIOXIDE LEVEL 30 MEQ/L (21-32); CHLORIDE LEVEL 101 MEQ/L (98-107); CREATININE FOR GFR 0.62 MG/DL (0.70-1.30); GLOMERULAR FILTRATION RATE > 60.0 (>56); GLUCOSE, FASTING 114 MG/DL (70-105); POTASSIUM SERUM 3.2 MEQ/L (3.5-5.1); SODIUM LEVEL 137 MEQ/L (136-145); TOTAL PROTEIN 5.5 GM/DL (6.4-8.2)
[2016-07-21] MEDS: KCL 20MEQ in NS 1000ML 1,000 ML IV SCH (06:19)
[2016-07-21] MEDS: IMIPENEM/CILASTATIN 500 MG in D5W MINI-BAG PLUS 100 ML IV SCH ×3 (06:19)
[2016-07-21 08:00] VITALS: BP 164/79
[2016-07-21] MEDS: ENOXAPARIN 40 MG/0.4 ML SYRINGE (J1650) SC SCH (08:26)
[2016-07-21] MEDS: PANTOPRAZOLE 40MG INJ (PROTONIX) (C9113) IV SCH (09:32)
--- NOTE | 2016-07-21 14:17 | DS.PDOC ---
Discharge Summary General Date of Admission Jul 16, 2016 at 03:28 Date of Discharge 07/21/2016 Discharge Summary DATE OF ADMISSION: 07/16/2016 DATE OF DISCHARGE: 07/21/2016 PRIMARY CARE PHYSICIAN: Dr. Simmons DISCHARGE DIAGNOS(E)S: Acute gallstone pancreatitis Ileus Hypokalemia Leukocytosis HPI & HOSPITAL COURSE: 56-year-old male with diverticulosis and GERD who presented with severe abdominal pain and vomiting, and has been admitted with acute gallstone pancreatitis. 1. Acute gallstone pancreatitis: MRCP showed edema consistent with pancreatitis , but did not show any evidence of a dilated common bile duct. Dr. Vitale and Dr. Gasca are following and we appreciate their input. At this time, there does not appear to be any need for an ERCP. LFTs have normalized. Now that the ileus seems to be resolving, the patient has started liquids and is tolerating them well; NG has already been removed. 2. Leukocytosis: The patient's initial white count was 19.1. He initially had some slight improvement 14.8 but then it jumped to 20 for 2 days. Now showing steady improvement and down to 14. The patient was afebrile overnight. He was on imipenem while hospitalized. Blood cultures are negative. 3. Ileus: Passing flatus; NG has been removed and he is tolerating liquids. 4. GERD: Continue PPI 5. Hypokalemia: replacing in IVF 6. Elevated BP: Patient has no history of HTN. Likely related to pain and IVF. Will need outpatient follow up to ensure normotension. DVT prophylaxis: Lovenox Dispo: On the day of discharge, the patient reported significantly improved abdominal pain and he was tolerating liquids well. He reported wanting to go home. 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 He was instructed to return to the emergency department if any of his symptoms return. PHYSICAL EXAMINATION ON DISCHARGE: VITAL SIGNS: Vital Signs Date Time Temp Pulse Resp B/P Pulse Ox O2 Delivery O2 Flow Rate FiO2 07/21/16 08:00 98.9 94 18 164/79 93 Room Air 07/21/16 04:32 2.0 General: aWake, alert, no acute distress HEENT: Normocephalic, atraumatic, extraocular movements intact CV: Regular rate and rhythm Lungs: Clear to auscultation bilaterally, no wheeze Abd: Soft, no appreciable bowel sounds, tenderness improving and mostly localized to epigastrum Extremities: No edema, pedal pulses intact Neuro: Alert and oriented 3, normal speech Psych: Normal Mood and affect DISPOSITION: Home DISCHARGE INSTRUCTIONS: PCP within one week. Dr. Gasca in 1-2 weeks for outpatient cholecystectomy. Advance diet as tolerated. If symptoms return, or if you experience worsening of your symptoms, please call your doctor or return to the emergency department. ITEMS THAT NEED OUTPATIENT FOLLOWUP: Resolution of leukocytosis BP check Patient was seen and examined by me on the day of discharge, and I spent a total time of less than 30 minutes on this discharge. Vital Signs/I&Os Vital Signs Date Time Temp Pulse Resp B/P Pulse Ox O2 Delivery O2 Flow Rate FiO2 07/21/16 08:00 98.9 94 18 164/79 93 Room Air 07/21/16 04:32 2.0 I&O- Last 24 Hours up to 6 AM 07/21/16 05:59 Intake Total 2710 ml Output Total 3125 ml Balance -415 ml Laboratory Data Labs 24H Laboratory Tests 2 07/21/16 05:01: Blood Urea Nitrogen 10, Creatinine 0.62L, Sodium Level 137, Potassium Level 3.2L , Chloride Level 101, Carbon Dioxide Level 30, Calcium Level 7.4L, Aspartate Amino Transf (AST/SGOT) 33, Alanine Aminotransferase (ALT/SGPT) 40, Alkaline Phosphatase 131H, Total Bilirubin 0.9, Total Protein 5.5L, Albumin 2.1L, Albumin /Globulin Ratio 0.62L, Anion Gap 6L, Glomerular Filtration Rate > 60.0, Lipase 89, Magnesium Level 2.0 CBC/BMP Laboratory Tests 07/21/16 05:01 Calcium Level 7.4 L, Aspartate Amino Transf (AST/SGOT) 33, Alanine Aminotransferase (ALT/SGPT) 40, Alkaline Phosphatase 131 H, Total Bilirubin 0.9 , Total Protein 5.5 L, Albumin 2.1 L, Red Blood Count 3.54 L, Mean Corpuscular Volume 95.6, Mean Corpuscular Hemoglobin 31.9, Mean Corpuscular Hemoglobin Concent 33.3, Red Cell Distribution Width 13.2 Microbiology Microbiology 07/16/16 Blood Culture - Final, Complete NO GROWTH AFTER 5 DAYS 07/16/16 Blood Culture - Final, Complete NO GROWTH AFTER 5 DAYS Discharge Medications Scheduled Aspirin (Aspir-81) 81 Mg Tab 81 MG PO DAILY (Reported) Famotidine (Pepcid) 20 Mg Tab 20 MG PO BID (Reported) Multivitamins *[facility] STOCKED* (Thera M Plus *[facility] STOCKED*) 1 Tab Tab 1 TAB PO DAILY (Reported) Allergies Coded Allergies: No Known Drug Allergy (Verified Allergy, Unknown, 07/16/16) KASI TORRES Jul 21, 2016 14:17
== END 2016-07-21 10:27 | disposition home or self-care (01) | DRG 282 ==
LOC: M ED 07-16 01:07 → M ED INP 07-16 03:28 → M MSPAV 07-16 03:59 → M PCU 07-16 09:16
PROVIDERS: ADMIT Hospitalist; ATTEND Hospitalist
DX: K85.10 Biliary acute pancreatitis without necrosis or infection (principal); K56.7 Ileus, unspecified; K57.90 Diverticulosis of intestine, part unspecified, without perforation or abscess without bleeding; E87.6 Hypokalemia; K21.9 Gastro-esophageal reflux disease without esophagitis; R03.0 Elevated blood-pressure reading, without diagnosis of hypertension; Z79.82 Long term (current) use of aspirin; Z79.899 Other long term (current) drug therapy

== ENCOUNTER → 2016-08-02 | Outpatient (REF) | payer OTHER ==
[~2016-08-02] MED LIST: ASPI81TA85 PO; MULT1TAB18 PO; PEPC1TAB4 PO; VITMTA PO
[2016-08-02 14:26] LABS: MEAN CORPUSCULAR HEMOGLOBIN 32.2 pg (27.0-33.0); MEAN CORPUSCULAR HGB CONC 32.5 g/dl (32.0-36.5); MEAN CORPUSCULAR VOLUME 99.3 fl (80.0-96.0); RED CELL DISTRIBUTION WIDTH 13.7 % (11.5-14.5); WHITE BLOOD COUNT 8.5 K/mm3 (4.0-10.0)
[2016-08-02 14:51] LABS: ALBUMIN 3.7 GM/DL (3.2-5.2); ALBUMIN/GLOBULIN RATIO 0.95 (1.00-1.93); ALKALINE PHOSPHATASE 133 U/L (45-117); ALT/SGPT 50 U/L (12-78); AMYLASE 39 U/L (25-115); ANION GAP 8 MEQ/L (8-16); AST/SGOT 26 U/L (15-37); BILIRUBIN,TOTAL 0.4 MG/DL (0.2-1.0); BLOOD UREA NITROGEN 16 MG/DL (7-18); CALCIUM LEVEL 9.7 MG/DL (8.5-10.1); CARBON DIOXIDE LEVEL 30 MEQ/L (21-32); CHLORIDE LEVEL 100 MEQ/L (98-107); CREATININE FOR GFR 0.97 MG/DL (0.70-1.30); GLOMERULAR FILTRATION RATE > 60.0 (>56); GLUCOSE, FASTING 91 MG/DL (70-105); SODIUM LEVEL 138 MEQ/L (136-145); TOTAL PROTEIN 7.6 GM/DL (6.4-8.2)
[2016-08-02 14:58] LABS: POTASSIUM SERUM 5.8 MEQ/L (3.5-5.1)
== END ==
LOC: M LAB REF 13:31
PROVIDERS: ATTEND Surgery
DX: K86.1 Other chronic pancreatitis (principal)

== ENCOUNTER → 2016-08-09 | Day surgery (SDC) | payer OTHER ==
[~2016-08-09] VITALS: Ht 170.2 cm; Wt 93.0 kg
[~2016-08-09] MED LIST changes: +BUPIVACAINE HCL 0.25% 30 ML VIAL As Ordered ONE; +GLYCOPYRROLATE INJ 0.2 MG/ML 2 ML VIAL As Ordered ONE; +HYDROmorphone HCL 1 MG/ML SYRINGE (J1170) IV PRN; +HYDROmorphone HCL 2 MG/ML 1ML VIAL (J1170) As Ordered ONE; +KETOROLAC 30 MG/ML VIAL (J1885) IV PRN; +KETOROLAC 60 MG/2 ML VIAL (J1885) As Ordered ONE; +LABETALOL HCL 100 MG/20 ML VIAL As Ordered ONE; +LIDOCAINE 2% INJ 100 MG/5 ML SDV (FOR ANES.) As Ordered ONE; +LR 1,000 ML IV SCH; +MEPERIDINE INJ 25 MG/ML VIAL (J2175) IV PRN; +METOCLOPRAMIDE INJ 10MG/2ML VIAL (J2765) As Ordered ONE; +MIDAZOLAM INJ 2 MG/2 ML VIAL (J2250) As Ordered ONE; +NEOSTIGMINE 1MG/ML 5 ML SYRINGE (J2710) As Ordered ONE; +NORCO, ANEXSIA 5/325MG TABLET (HYDROcodone/ACETAMINOPHEN) PO PRN; +ONDANSETRON 4MG/2ML VIAL (J2405) As Ordered ONE; +ONDANSETRON 4MG/2ML VIAL (J2405) IV PRN; +PERCOCET 5MG/325MG TAB PO PRN; +PROPOFOL 200 MG/20 ML VIAL As Ordered ONE; +ROCURONIUM BROMIDE 50 MG/5 ML VIAL As Ordered ONE; +dexameTHASONE 4 MG/ML 1ML VIAL (J1100) As Ordered ONE; +diphenhydrAMINE INJ 50MG/ML VIAL (J1200) IV PRN; +fentaNYL 100 MCG/2 ML INJECTION (J3010) IV PRN; +fentaNYL 250 MCG/5 ML INJECTION (J3010) As Ordered ONE
[2016-08-09 06:20] LABS: MEAN CORPUSCULAR HEMOGLOBIN 32.4 pg (27.0-33.0); MEAN CORPUSCULAR HGB CONC 32.9 g/dl (32.0-36.5); MEAN CORPUSCULAR VOLUME 98.6 fl (80.0-96.0); RED CELL DISTRIBUTION WIDTH 13.8 % (11.5-14.5); WHITE BLOOD COUNT 6.9 K/mm3 (4.0-10.0)
[2016-08-09 11:15] VITALS: BP 141/71
--- NOTE | 2016-08-10 16:11 | RO ---
DATE OF PROCEDURE: 08/09/2016 PREOPERATIVE DIAGNOSIS: Cholelithiasis and recent pancreatitis. POSTOPERATIVE DIAGNOSIS: Cholelithiasis and recent pancreatitis. PROCEDURE PERFORMED: Laparoscopic cholecystectomy. SURGEON: Dr. Julio César Gasca DIRECTOR OF MARKETING: Dr. Clark SECOND BURSAR: Brendan Alvarez MS III ANESTHESIA: General. INDICATIONS FOR PROCEDURE: The patient is a 56-year-old man who had recently presented with an episode of moderately severe pancreatitis. He was found to have cholelithiasis, and this was felt to be the etiology of his pancreatitis. He is now for a laparoscopic cholecystectomy. DESCRIPTION OF PROCEDURE: The patient was placed under general endotracheal anesthesia. The patient's abdomen was clipped of hair and prepped and draped in a sterile fashion. 0.25% Marcaine was infiltrated at each of the trocar sites. A short supraumbilical midline incision was made, and this was deepened through the midline fascia and the peritoneum. The Kyler cannula was inserted, and the abdomen was insufflated with carbon dioxide gas. The patient was tilted to a reverse Trendelenburg position and rolled to the left. The liver was fairly high beneath the right hemidiaphragm. Two 5 mm trocars were placed in the right upper quadrant. A third 5 mm trocar was placed in the left upper quadrant. Some omentum up over the right lobe of the liver was pulled inferiorly. There were adhesions of the omentum along the liver edge and over the gallbladder. The fundus of the gallbladder was exposed. The gallbladder appeared to be somewhat thickened and pale in color. The gallbladder was grasped and elevated. The fairly dense adhesions of the omentum over the gallbladder were freed using dissection with the cautery. Dissection proceeded down along the body and neck of the gallbladder. The peritoneum was opened over the neck of the gallbladder. The cholecystic artery was identified and this was doubly clipped with hemoclips and divided. The patient was noted to have some inflammatory changes around the neck of the gallbladder. The neck of the gallbladder was freed, and the cystic duct was clearly identified. The cystic duct was doubly clipped with hemoclips and divided. The gallbladder was then dissected free from the gallbladder bed using the spatula cautery. The gallbladder was not perforated in the course of dissection. The gallbladder was placed in an Endopouch. The right upper quadrant was irrigated and inspected. There was no evidence of bleeding or bile leak. The patient was returned to a flat position. The abdomen was deflated, and the trocars were all removed. The gallbladder was recovered through the Kyler site. The gallbladder wall was thickened, and I did not feel stones within the gallbladder. This was sent for permanent pathology. The fascia at the Kyler site was closed with interrupted simple sutures of #2-0 Vicryl. The skin incisions were all closed with buried #5-0 Vicryl and Steri-Strips. Light dressings were applied. The patient tolerated the procedure well without apparent complication. He was awakened in the operating room, extubated and moved to the recovery room in stable condition. MARILEE
== END | disposition home or self-care (01) ==
LOC: M SDC 05:50
PROVIDERS: ATTEND Surgery
DX: K80.10 Calculus of gallbladder with chronic cholecystitis without obstruction (principal); K85.90 Acute pancreatitis without necrosis or infection, unspecified; K21.9 Gastro-esophageal reflux disease without esophagitis; Z79.82 Long term (current) use of aspirin
CPT/HCPCS: 36415; 47562; 85027; 88304; J1100; J1170; J1885; J2250; J2405; J2710; J2765; J3010

== ENCOUNTER → 2018-09-25 | Outpatient (CLI) | payer BC, OTHER ==
[~2018-09-25] MED LIST changes: -BUPIVACAINE HCL 0.25% 30 ML VIAL As Ordered ONE; -GLYCOPYRROLATE INJ 0.2 MG/ML 2 ML VIAL As Ordered ONE; -HYDROmorphone HCL 1 MG/ML SYRINGE (J1170) IV PRN; -HYDROmorphone HCL 2 MG/ML 1ML VIAL (J1170) As Ordered ONE; -KETOROLAC 30 MG/ML VIAL (J1885) IV PRN; -KETOROLAC 60 MG/2 ML VIAL (J1885) As Ordered ONE; -LABETALOL HCL 100 MG/20 ML VIAL As Ordered ONE; -LIDOCAINE 2% INJ 100 MG/5 ML SDV (FOR ANES.) As Ordered ONE; -LR 1,000 ML IV SCH; -MEPERIDINE INJ 25 MG/ML VIAL (J2175) IV PRN; -METOCLOPRAMIDE INJ 10MG/2ML VIAL (J2765) As Ordered ONE; -MIDAZOLAM INJ 2 MG/2 ML VIAL (J2250) As Ordered ONE; -NEOSTIGMINE 1MG/ML 5 ML SYRINGE (J2710) As Ordered ONE; -NORCO, ANEXSIA 5/325MG TABLET (HYDROcodone/ACETAMINOPHEN) PO PRN; -ONDANSETRON 4MG/2ML VIAL (J2405) As Ordered ONE; -ONDANSETRON 4MG/2ML VIAL (J2405) IV PRN; -PEPC1TAB4 PO; +PEPC1TAB5 PO; -PERCOCET 5MG/325MG TAB PO PRN; -PROPOFOL 200 MG/20 ML VIAL As Ordered ONE; -ROCURONIUM BROMIDE 50 MG/5 ML VIAL As Ordered ONE; -dexameTHASONE 4 MG/ML 1ML VIAL (J1100) As Ordered ONE; -diphenhydrAMINE INJ 50MG/ML VIAL (J1200) IV PRN; -fentaNYL 100 MCG/2 ML INJECTION (J3010) IV PRN; -fentaNYL 250 MCG/5 ML INJECTION (J3010) As Ordered ONE
--- NOTE | 2018-09-25 12:36 | REP ---
Clinical: Trauma. Technique: AP, lateral, bilateral oblique views right hand . Findings: Generalized age-related changes noted. The osseous structures and joint spaces are intact and there is no evidence for acute fracture or dislocation. Surrounding soft tissues are unremarkable. No subcutaneous emphysema or radiodense foreign body. Impression: No acute fracture or dislocation. Electronically Signed by Ildefonso Pickard MD 09/25/2018 12:28 P
== END ==
LOC: M SMT 11:49
PROVIDERS: ATTEND Nurse Practitioner Family
DX: G89.11 Acute pain due to trauma (principal)

== ENCOUNTER → 2020-02-09 | Outpatient (REF) ==
[~2020-02-09] MED LIST changes: -ASPI81TA85 PO; +ASPI81TA86 PO
== END ==
LOC: M EMP 08:00 → EDSTATUS 10:00
PROVIDERS: ATTEND Pediatrics
DX: Z20.828 Contact with and (suspected) exposure to other viral communicable diseases (principal)

== ENCOUNTER → 2020-02-20 | Outpatient (CLI) | payer SELFPAY | LOC: M LABSMTC 09:41 | PROVIDERS: ATTEND Pediatrics | DX: Z20.828 Contact with and (suspected) exposure to other viral communicable diseases (principal) ==

== ENCOUNTER → 2021-08-16 | Outpatient (REF) | payer BC ==
[2021-08-16 17:39] LABS: BASO # 0.1 10^3/uL (0.0-0.2); BASO % 0.5 % (0.0-1.0); EOS # 0.1 10^3/uL (0.0-0.5); EOS % 0.9 % (0.0-3.0); HEMATOCRIT 45.6 % (42.0-52.0); HEMOGLOBIN 15.1 g/dl (13.5-17.5); LYMPH # 0.7 10^3/uL (1.5-5.0); LYMPH % 6.2 % (24.0-44.0); MEAN CORPUSCULAR HEMOGLOBIN 32.9 pg (27.0-33.0); MEAN CORPUSCULAR HGB CONC 33.1 g/dl (32.0-36.5); MEAN CORPUSCULAR VOLUME 99.3 fl (80.0-96.0); MONO # 0.8 10^3/uL (0.0-0.8); MONO % 7.2 % (2.0-8.0); NEUTROPHILS # 9.3 10^3/uL (1.5-8.5); NEUTROPHILS % 84.9 % (36.0-66.0); PLATELET COUNT, AUTOMATED 306 10^3/uL (150-450); RED BLOOD COUNT 4.59 10^6/uL (4.30-6.10); WHITE BLOOD COUNT 10.9 10^3/uL (4.0-10.0)
[2021-08-16 18:00] LABS: ALBUMIN 4.2 GM/DL (3.2-5.2); ALT/SGPT 27 U/L (12-78); BILIRUBIN,TOTAL 0.6 MG/DL (0.2-1.0); BLOOD UREA NITROGEN 22 MG/DL (7-18); C REACTIVE PROTEIN QUANTITATIV 1.39 MG/DL (0.00-0.30); CALCIUM LEVEL 9.8 MG/DL (8.8-10.2); CARBON DIOXIDE LEVEL 28 MEQ/L (21-32); CHLORIDE LEVEL 103 MEQ/L (98-107); CREATININE FOR GFR 1.06 MG/DL (0.70-1.30); GLOMERULAR FILTRATION RATE > 60.0 (>49); GLUCOSE, FASTING 97 MG/DL (70-100); POTASSIUM SERUM 4.8 MEQ/L (3.5-5.1); SODIUM LEVEL 138 MEQ/L (136-145); TOTAL PROTEIN 7.8 GM/DL (6.4-8.2)
[2021-08-16 18:18] LABS: ERYTHROCYTE SEDIMENTATION RATE 23 mm/hr (0-20)
== END ==
LOC: M LAB REF 17:23
PROVIDERS: ATTEND Internal Medicine Pulmonary Disease
DX: M79.10 Myalgia, unspecified site (principal)

== ENCOUNTER → 2022-01-04 | Outpatient (REF) | payer OTHER ==
[2022-01-04 14:38] LABS: FREE T4 1.18 NG/DL (0.76-1.46); THYROID STIMULATING HORMONE 1.12 uIU/ML (0.358-3.740)
== END ==
LOC: M LAB REF 12:55
PROVIDERS: ATTEND Internal Medicine Pulmonary Disease
DX: R53.83 Other fatigue (principal)
CPT/HCPCS: 84439; 84443; G0103

== ENCOUNTER → 2022-05-21 | Outpatient (REF) | payer OTHER | LOC: M LAB REF 12:55 | PROVIDERS: ATTEND Internal Medicine Gastroenterology | DX: Z12.11 Encounter for screening for malignant neoplasm of colon (principal) ==

== ENCOUNTER 2022-05-23 06:56 | Day surgery (SDC) | payer BC ==
[~2022-05-23] VITALS: Ht 170.2 cm; Wt 89.4 kg
[~2022-05-23 06:56] MED LIST changes: +LIDOCAINE 2% 100MG/5ML SDV (FOR ANES.) As Ordered ONE; +NS 1,000 ML IV ONE; +propofoL 200 MG/20 ML VIAL As Ordered ONE
[2022-05-23] MEDS ORDERED: fentaNYL 100 MCG/2 ML INJECTION As Ordered ONE (08:01)
[2022-05-23 08:45] VITALS: BP 129/77
== END 2022-05-23 08:53 | disposition home or self-care (01) ==
LOC: M OPP 06:56
PROVIDERS: ATTEND Internal Medicine Gastroenterology
DX: Z12.11 Encounter for screening for malignant neoplasm of colon (principal); D12.3 Benign neoplasm of transverse colon; K64.0 First degree hemorrhoids; K57.30 Diverticulosis of large intestine without perforation or abscess without bleeding; K44.9 Diaphragmatic hernia without obstruction or gangrene; K31.89 Other diseases of stomach and duodenum; K22.89 Other specified disease of esophagus; K29.60 Other gastritis without bleeding; Z79.82 Long term (current) use of aspirin
CPT/HCPCS: 43239; 45380; 88305; J3010